=== PATIENT | female | born 1995 | race American Indian/Alaskan Native ===

== ENCOUNTER 2017-01-22 15:09 | Emergency (ER) | payer MEDICAID, OTHER ==
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
[2017-01-22 20:13] VITALS: BP 120/70
== END 2017-01-22 20:00 | disposition home or self-care (01) ==
LOC: ED 15:09
DX: T23.012A Burn of unspecified degree of left thumb (nail), initial encounter (principal); W22.10XA Striking against or struck by unspecified automobile airbag, initial encounter; Y93.9 Activity, unspecified; Y92.9 Unspecified place or not applicable; Y99.9 Unspecified external cause status
CPT/HCPCS: 99282